=== PATIENT | female | born 1975 | race Caucasian/White ===

== ENCOUNTER 2024-02-24 15:12 | Outpatient (CLI) | payer BC, SELFPAY ==
--- NOTE | 2024-02-24 15:23 | ECHO_ITS ---
Patient Info Name: Vee Izquierdo Age: 48 years : 1975 Gender: Female Ht: 68 in Wt: 165 lbs BSA: 1.90 m2 HR: 70 bpm BP: 99 / 70 mmHg Heart Rhythm: Sinus Rhythm Technical Quality: Fair Exam Date: 02/24/2024 3:32 PM Exam Location: Echo Lab Patient Status: Outpatient Admit Date: 02/24/2024 Staff Ordering Physician: Cammy Ruiz PA-C Basket Person: Joshua Borden RDCS Attending Provider: Cammy Ruiz PA-C Exam Type: CA echo doppler w bubble study Study Info Indications G45.9 - Transient cerebral ischemic attack, unspecified Complete two-dimensional, color flow and Doppler transthoracic echocardiogram is performed with agitated saline. Contrast/Agitated Saline Contrast/Ag. Saline: Agitated Saline Amount: 14.00 ml IV Access Condition: patent with no signs of infiltration Summary 1. Unremarkable 2D/Doppler echocardiogram. 2. Agitated saline contrast injection was negative for shunt. Left Ventricle Left ventricular chamber dimension is normal. Left ventricular systolic function is normal, estimated at 60-65%. The left ventricular diastolic function is normal. Right Ventricle Right ventricular chamber dimension is normal. Left Atria Left atrial chamber dimension is normal. Right Atria Right atrial chamber dimension is normal. Atrial Septum Intact interatrial septum visualized by agitated saline imaging. Aortic Valve The aortic valve is normal. Pulmonic Valve The pulmonic valve is normal. Mitral Valve The mitral valve has normal leaflets. Tricuspid Valve The tricuspid valve leaflets are normal. There is trace tricuspid valve regurgitation. Pericardium/Pleural The pericardium appears normal. Aorta The aortic root size at the sinus of Valsalva is normal. Report Signatures
== END 2024-02-24 15:13 | disposition home or self-care (01) ==
LOC: ANHCARD 15:12
PROVIDERS: PCP Family Medicine; Visit Provider Physician Assistant Medical
DX: G45.9 Transient cerebral ischemic attack, unspecified (principal); R29.90 Unspecified symptoms and signs involving the nervous system
CPT/HCPCS: 93306; 96375

== ENCOUNTER 2024-02-24 15:13 | Outpatient (CLI) | payer BC, SELFPAY ==
--- NOTE | ~2024-02-24 | US_ITS ---
EXAMINATION: US carotid duplex BI DATE: 02/24/2024 17:17 INDICATION: TIA TECHNIQUE: Grayscale, color Doppler, and pulsed Doppler images of the cervical carotid arteries were obtained. The degree of vessel stenosis is placed in one of the following categories: normal, <50%, 5 0-69%, >=70% but less than near-occlusion, near-occlusion, or total occlusion. Note that percent sten osis relative to normal distal artery lumen diameter is indirectly measured from velocity measurement s as described by Antione, et al. Radiology 2003; 229:340-346. Notes: Normal: Peak systolic velocity <125 centimeters/sec and no plaque <50%. Peak systolic velocity <125 ( EDV <40; ICA/CCA PSV ratio <2.0; used these factors only a tandem lesions or low cardiac output or co ntralateral disease) 50-69 %: PSV 125-230 (EDV 40-100; ratio 2-4) >= 70% but less than near occlusion: PSV greater than 230 (EDV > 100; ratio> 4.0) Near Occlusion: PSV that is variable; markedly narrowed lumen Occlusion: Absent flow on color/spectral Doppler and no lumen on alvarez scale. COMPARISON: None. FINDINGS: RIGHT: The right common carotid artery (CCA) peak systolic velocity (PSV) is 87 cm/s. The right internal car otid artery (ICA) PSV is 98 cm/s. The right ICA end-diastolic velocity (EDV) is 45 cm/s. The right IC A/CCA PSV ratio is 1.1. The external carotid artery (ECA) PSV is 78 cm/s. There is antegrade flow in the right vertebral artery. LEFT: The left CCA PSV is 103 cm/s. The left ICA PSV is 89 cm/s. The left ICA EDV is 38 cm/s. The left ICA/ CCA PSV ratio is .9. The ECA PSV is 87 cm/s. There is antegrade flow in the left vertebral artery. IMPRESSION: 1. Less than 50% stenosis in the right internal carotid artery by sonographic criteria. 2. Less than 50% stenosis in the left internal carotid artery by sonographic criteria. Reviewed, dictated and finalized at location B. IMPRESSION: 1. Less than 50% stenosis in the right internal carotid artery by sonographic howie gimenez. 2. Less than 50% stenosis in the left internal carotid artery by sonographic mirtha flores.
== END 2024-02-24 15:14 | disposition home or self-care (01) ==
LOC: ANHIMG 15:14
PROVIDERS: PCP Family Medicine; Visit Provider Physician Assistant Medical
DX: I65.23 Occlusion and stenosis of bilateral carotid arteries (principal); R29.90 Unspecified symptoms and signs involving the nervous system
CPT/HCPCS: 93880

== ENCOUNTER 2024-04-01 16:03 | Outpatient (CLI) | payer BC, SELFPAY ==
--- NOTE | ~2024-04-01 | MR_ITS ---
EXAMINATION: MR brain/brain stem wo/w con DATE: 04/01/2024 16:37 INDICATION: Transient cerebral ischemic attack, unspecified. Left facial weakness. Slurred speech. TECHNIQUE: Magnetic resonance imaging (MRI) of the brain and brainstem was performed without and with 15 mL MultiHance intravenous contrast. COMPARISON: Head CT 03/05/2009 FINDINGS: There is no intracranial hemorrhage, acute infarction, or abnormal intracranial mass lesion . The ventricles are normal in size. The paranasal sinuses are clear. The orbits are normal. There is a trace left mastoid effusion. IMPRESSION: 1. Normal brain. Reviewed, dictated and finalized at location E. IMPRESSION: 1. Normal brain.
== END 2024-04-01 16:04 ==
LOC: MICIMG 16:04
PROVIDERS: PCP Family Medicine; Visit Provider Physician Assistant Medical
DX: G45.9 Transient cerebral ischemic attack, unspecified (principal); R29.810 Facial weakness; R29.90 Unspecified symptoms and signs involving the nervous system
CPT/HCPCS: 70553; A9577

== ENCOUNTER 2024-12-30 07:02 | Outpatient (CLI) | payer BC, SELFPAY ==
--- OUTSIDE RECORDS SUMMARY | 2024-12-30 07:07 | XMS_ITS | Clinical Summary ---
Author Organization [facility] Address [address] [place] [address] Care Team Providers Care Control Room Supervisor Name Role Phone Maggie San Don CASHIER OR CHECKER STOCK CLERK-EMT BASIC Primary Care Provider Source Comments [facility],non-owned Affiliates and Associated Physician Practices is amultiple site organization consisting of ambulatory clinics and hospital sitesin [place], [place], [place] and [place]. This disclosure is being madepursuant to the Care Everywhere program and may not contain all information available regarding this patient. Last updated 18.[facility] Allergies Active Allergy Reactions Criticality Noted Date Comments Penicillins Seizures High 01/11/2018 As infant Medications * Be aware that medications may not be up to date on this document. Alwaysverify current medications with the patient. Medication Sig Dispensed Refills Start Date End Date Status telmisartan-hydroCHL OROthiazide (MICARDIS HCT) 80-25 MG Take 1 tablet by mouth once daily Active furosemide (LASIX) 40 MG tablet Take 40 mg by mouth once daily Active LORazepam (ATIVAN) 0.5 MG tablet Take 0.5 mg by mouth every 8 hours as needed for Anxiety Active cyclobenzaprine (FLEXERIL) 10 MG tablet Take 10 mg by mouth 3 times daily as needed for Muscle Spasms Active benzonatate (TESSALON) 200 MG capsuleIndications:N asopharyngitis acute Take 1 capsule by mouth 3 times daily as needed for Cough 30 capsule 01/11/2018 Active Family History Medical History Relation Name Comments Arthritis - Rheumatoid Mother Hypertension Mother Relation Name Status Comments Mother Alive Social History Tobacco Use Types Packs/Day Years Used Date Smoking Tobacco: Never Smokeless Tobacco: Never Sex and Gender Information Value Date Recorded Sex Assigned at Not on file Gender Identity Not on file Sexual Orientation Not on file Last Filed Vital Signs Vital Sign Reading Time Taken Comments Blood Pressure 122/80 01/11/2018 11:33 AM CDT Pulse 88 01/11/2018 11:33 AM CDT Temperature 37 C (98.6 F) 01/11/2018 11:33 AM CDT Respiratory Rate 16 01/11/2018 11:33 AM CDT Oxygen Saturation 97% 01/11/2018 11:33 AM CDT Inhaled Oxygen Concentration - - Weight 111.1 kg (245 lb) 01/11/2018 11:33 AM CDT Height 172.7 cm (5' 8 ) 01/11/2018 11:33 AM CDT Body Mass Index 37.25 01/11/2018 11:33 AM CDT Plan of Treatment Health Maintenance Due Date Last Done Comments COLOGUARD (AGES 45-75) - COL ON CA SCREENING 1975 COLON MONITORING 1975 COLONOSCOPY - COLON CA SCREENING 1974 CT COLONOGRAPHY - COLON CA SCREENING 1975 Colorectal Cancer Screening 1975 FIT - COLON CA SCREENING 1975 FLEX SIG - COLON CA SCREENING 1975 LIPID TESTING 1975 MAMMOGRAM 1975 PAP SMEAR 1975 HIV SCREENING 1989 HEPATITIS C SCREENING 11/25/1992 DTAP/TDAP/TD VACCINES (1 - Tdap) 1993 HEPATITIS B VACCINE (1 of 3 - 19+ 3-dose series) 1993 SCREENING FOR DIABETES 01/11/2018 COVID-19 VACCINE ( - 2023-2 5 season) 2024 DEPRESSION SCREENING 09/22/2024 PNEUMOCOCCAL VACCINE 50+ (1 of 1 - PCV) 2024 ZOSTER VACCINE (1 of 2) 2024 INFLUENZA VACCINE (Season Ended) 2025 HIB VACCINE Aged Out No longer eligi ble based on patient's age to complete this topic HPV VACCINE Aged Out No longer eligi ble based on patient's age to complete this topic MENINGOCOCCAL (Group B) VACC INE SHARED DECISION-MAKING Aged Out No longer eligibl e based on patient's age to complete this topic MENINGOCOCCAL GROUPS A/C/Y/W VACCINE Aged Out No longer eligible b ased on patient's age to complete this topic PNEUMOCOCCAL VACCINE Aged Out No long er eligible based on patient's age to complete this topic Care Teams Control Room Supervisor Relationship Specialty Start Date End Date Maggie San, CASHIER OR CHECKER STOCK CLERK-EMT BASIC [address] [place] [address] [place] [phone] PCP - General Family Medicine 01/11/18
--- NOTE | 2024-12-30 11:43 | WPDNEUROLOGY ---
Neurology EEG Report General Information Date of Study: 12/30/24 TEST Electroencephalogram DIAGNOSIS patient had an episode of dizziness and loss of consciousness about a month ago. Patient did lose control of bladder and was a little confused after that. CONDITION OF RECORDING Neurodiagnostic lab EEG NUMBER 25-65 CLINICAL HISTORY Loss of consciousness EEG DESCRIPTION During wakefulness the background activity consists of posterior dominant alpha rhythm at 10 hertz with an amplitude of 25-50 microvolts which appears very well-formed and reactive to eye opening. Anteriorly low amplitude mixed frequency activity was seen. Hyperventilation performed for 3 minutes during which no significant abnormal background changes were seen. Patient was noted to be intermittently drowsy during which attenuation of background activity was seen however patient did not progress to stage 2 sleep. Photic stimulation also performed during which no significant abnormal background changes were seen. Occasional sharp wave activity was noted over left temporal area. IMPRESSION This is a mild abnormal EEG due to presence of rare sharp wave activity noted over the left temporal area. This however is considered nonspecific focal interictal abnormality and should be clinically correlated.
== END 2024-12-30 07:03 | disposition home or self-care (01) ==
PROVIDERS: PCP Family Medicine; Visit Provider Family Medicine
DX: R55 Syncope and collapse (principal); R94.01 Abnormal electroencephalogram [EEG]
CPT/HCPCS: 95816

== ENCOUNTER 2025-03-05 13:32 | Outpatient (CLI) | payer BC, SELFPAY ==
--- NOTE | ~2025-03-05 | MR_ITS ---
EXAMINATION: MR brain/brain stem wo/w con DATE: 03/05/2025 15:05 INDICATION: Syncope and collapse TECHNIQUE: Magnetic resonance imaging (MRI) of the brain and brainstem was performed without intraven ous contrast. Sequences included sagittal and axial T1-weighted SE, axial diffusion-weighted FS SE, a xial 3D SWAN, axial T2-weighted FLAIR, and axial T2-weighted FSE. Postcontrast axial and coronal T1-w eighted SE was obtained. Apparent diffusion coefficient (ADC) maps were created. COMPARISON: 04/01/2024 FINDINGS: There are no areas of restricted diffusion to suggest acute infarction. No intracranial hemorrhage or abnormal intracranial mass lesion. There are no intraparenchymal signal abnormalities seen on the ot her pulse sequences. The ventricles are symmetric and normal in size. There are no abnormal extra-axi al fluid collections. Flow voids are seen in the cerebral arteries on the T2-weighted sequences consi stent with their expected patency. Visualized orbits and soft tissues are unremarkable. There are no areas of abnormal enhancement on the post contrast images. IMPRESSION: 1. Normal brain. Reviewed, dictated and finalized at location A. IMPRESSION: 1. Normal brain.
--- OUTSIDE RECORDS SUMMARY | 2025-03-05 13:37 | XMS_ITS | Clinical Summary ---
Author Organization [facility] Address [address] [place] [address] Care Team Providers Care Special Delivery Worker Name Role Phone Maggie San Don DIVING SUPERVISOR-POLISHING MACHINE OPERATOR HELPER Primary Care Provider Source Comments [facility],non-owned Affiliates and Associated Physician Practices is amultiple site organization consisting of ambulatory clinics and hospital sitesin [place], [place], [place] and [place]. This disclosure is being madepursuant to the Care Everywhere program and may not contain all information available regarding this patient. Last updated 18.[facility] Allergies Active Allergy Reactions Criticality Noted Date Comments Penicillins Seizures High 01/11/2018 As Medications * Be aware that medications may not be up to date on this document. Alwaysverify current medications with the patient. telmisartan-hyd roCHLOROthiazid e (MICARDIS HCT) 80-25 MG Take 1 tablet [...] Muscle Spasms Active benzonatate (TESSALON) 200 MG capsuleIndicati ons:Nasopharyng itis acute Take 1 capsule by mouth 3 times daily as needed for Cough 30 capsule 01/11/2018 Active Family History Medical History Relation Name Comments Arthritis - Rheumatoid Mother Hypertension Mother Relation Name Status Comments Mother Alive Social History Tobacco Use Types Packs/Day Years Used Date Smoking Tobacco: Never Smokeless Tobacco: Never Comments No Sex and Gender Information Value Date Recorded Sex Assigned at Not on file Legal Sex Female 10:52 PM CDT Gender Identity Not on file Sexual Orientation [...] 11:33 AM CDT Height 172.7 cm (5' 8) 01/11/2018 11:33 AM CDT Body Mass Index [...] SCREENING 1975 LIPID TESTING 1975 MAMMOGRAM 1975 HIV SCREENING 1989 HEPATITIS C SCREENING 11/25/1992 DTAP/TDAP/TD VACCINES (1 - Tdap) 1993 HEPATITIS B VACCINE (1 of 3 - 19+ 3-dose series) 1993 SCREENING FOR DIABETES 01/11/2018 COVID-19 VACCINE (1 - 2023-2 5 season) 2024 DEPRESSION SCREENING [...] on patient's age to complete this topic Insurance [facility] Care Teams Special Delivery Worker Relationship Specialty Start Date End Date Maggie San, DIVING SUPERVISOR-POLISHING MACHINE OPERATOR HELPER [address] [place] [phone] PCP - General Family Medicine 01/11/18
== END 2025-03-05 13:33 | disposition home or self-care (01) ==
PROVIDERS: PCP Family Medicine; Visit Provider Family Medicine
DX: R94.01 Abnormal electroencephalogram [EEG] (principal); R55 Syncope and collapse
CPT/HCPCS: 70553; A9577

== ENCOUNTER 2025-06-24 16:37 | Outpatient (CLI) | payer BC, SELFPAY ==
[2025-06-24 16:57] LABS: Hematocrit 41.7 % (37.0-47.0); Hemoglobin 13.7 g/dL (12.0-15.0); Immature Granulocyte Percent A 0.5 % (0-0.5); Lymphocytes Absolute Auto 3.13 K/mm3 (0.9-3.2); Mean Corpuscular HGB Conc 32.9 g/dl (32-36); Mean Corpuscular Hemoglobin 30.0 pg (26-34); Mean Corpuscular Volume 91.2 fl (80-100); Nucleated Red Blood Cells Absolute Auto 0.000 K/mm3 (0.0-0.012); Nucleated Red Blood Cells Perc 0.0 % (0.0-0.2); Platelet Count Result 256 k/mm3 (150-375); Red Blood Count 4.57 M/mm3 (4.2-5.4); White Blood Count 8.8 K/mm3 (4.5-10.0)
[2025-06-24 17:07] LABS: Hemoglobin A1C 5.1 % (<5.7)
[2025-06-24 17:09] LABS: Alanine Aminotransferase 20 U/L (6-35); Albumin Level 4.5 g/dL (3.5-5.1); Alkaline Phosphatase 72 U/L (38-126); Anion Gap 6 mmol/L (4-12); Aspartate Amino Transferase 32 U/L (14-36); Bilirubin,Total 1.0 mg/dL (0.2-1.3); Blood Urea Nitrogen 12 mg/dL (7-17); Calcium 9.0 mg/dL (8.4-10.2); Carbon Dioxide 29 mmol/L (22-30); Chloride 100 mmol/L (98-107); Estimated Glomerular Filt Rate > 60; Glucose 93 mg/dL (65-110); Potassium 3.7 mmol/L (3.4-5.0); Sodium 135 mmol/L (137-145); Total Protein 7.9 g/dL (6.3-8.2)
[2025-06-24 18:20] LABS: Vitamin B12 613.0 pg/mL (239-931)
== END 2025-06-24 16:38 | disposition home or self-care (01) ==
LOC: ANHLAB 16:40
PROVIDERS: PCP Family Medicine; Visit Provider Student in an Organized Health Care Education/Training Program
DX: I10 Essential (primary) hypertension (principal); E16.2 Hypoglycemia, unspecified; R42 Dizziness and giddiness; E11.9 Type 2 diabetes mellitus without complications
CPT/HCPCS: 36415; 80053; 82607; 82746; 83036; 85025

== ENCOUNTER 2025-07-05 15:29 | Outpatient (CLI) | payer BC, SELFPAY ==
--- OUTSIDE RECORDS SUMMARY | 2025-07-05 17:07 | XMS_ITS | Clinical Summary ---
Author Organization [facility] Address [address] [place] [address] Care Team Providers Care Bartender Helper Name Role Phone Maggie San Don DESIGN CELL ENGINEER-BOXING PROMOTER Primary Care Provider Source Comments [facility],non-owned Affiliates and Associated Physician Practices is amultiple site organization consisting of ambulatory clinics and hospital sitesin [place], [place], [place] and [place]. This disclosure is being madepursuant to the Care Everywhere program and may not contain all information available regarding this patient. Last updated 18.[facility] Allergies Active Allergy Reactions Criticality Noted Date [...] 3-dose series) 1993 SCREENING FOR DIABETES 01/11/2018 DEPRESSION SCREENING 09/22/2024 PNEUMOCOCCAL VACCINE 50+ (1 of 1 - PCV) 2024 ZOSTER VACCINE (1 of 2) 2024 COVID-19 VACCINE (1 - 2023-2 5 season) 2025 INFLUENZA VACCINE (#1) 2025 HIB VACCINE Aged Out No longer [...] patient's age to complete this topic Insurance [facility] Care Teams Bartender Helper Relationship Specialty Start Date End Date Maggie San, DESIGN CELL ENGINEER-BOXING PROMOTER [address] [place] [phone] PCP - General Family Medicine 01/11/18
--- NOTE | 2025-07-19 12:02 | WPDHOLTEREM ---
Holter/Event Monitor Holter/Event Monitor Date of procedure: 07/05/25 Holter/Event Procedure: 3-7 Day Holter Monitor Indications: Syncope Conclusion: 1. 7 days holter monitor on 07/05/25. 2. Predominant rhythm is sinus rhythm. HR range 57-124 bpm; average HR 82 bpm. 3. There are rare premature supraventricular complexes and rare supraventricular couplets. There are 4 episodes of supraventricular tachycardia with fastest at 119 bpm and longest lasting 11 beats. 4. There are occasional premature ventricular complexes, rare ventricular couplets, longest ventricular bigeminy was 13.4 seconds, and longest ventricular trigeminy was 9.1 seconds. No ventricular tachycardia. 5. No significant pauses greater than 3 seconds. 6. Patient reports 1 episode of symptom of lightheadedness which demonstrates sinus rhythm at 79 bpm.
== END 2025-07-05 15:30 | disposition home or self-care (01) ==
LOC: ANHCARD 15:31
PROVIDERS: PCP Family Medicine; Visit Provider Family Medicine
DX: R55 Syncope and collapse (principal)
CPT/HCPCS: 93242